=== PATIENT | female | born 1980 | race Caucasian/White ===

== ENCOUNTER 2021-04-11 16:19 | Observation (INO) | payer OTHER ==
[~2021-04-11] VITALS: Ht 175.3 cm; Wt 96.2 kg
[2021-04-11 16:46] LABS: BASOPHILS % 0.4 % (0.0-1.0); EOSINOPHILS # (AUTO) 0.1 (0.0-0.4); HEMATOCRIT 23.7 % (34.2-44.1); LYMPHOCYTES # (AUTO) 1.6 (1.0-3.2); LYMPHOCYTES % 22.7 % (18.0-39.1); MEAN CORPUSCULAR HEMOGLOBIN 17.7 pg (28-32); MEAN CORPUSCULAR HGB CONC 26.6 g/dL (31-35); MEAN CORPUSCULAR VOLUME 66.8 fL (81-99); MONOCYTES # (AUTO) 0.4 (0.2-0.8); NEUTROPHILS # (AUTO) 4.9 (2.1-6.9); NEUTROPHILS % 69.5 % (38.7-80.0); PLATELET COUNT 378 x10e3/uL (140-360); RED BLOOD COUNT 3.55 x10e6/uL (3.6-5.1); RED CELL DISTRIBUTION WIDTH 16.5 % (11.7-14.4)
[2021-04-11 16:52] LABS: HEMOGLOBIN 6.3 g/dL (12.0-16.0)
[2021-04-11 16:59] LABS: ALBUMIN 3.9 g/dL (3.5-5.0); ALBUMIN/GLOBULIN RATIO 1.2 (0.8-2.0); ANION GAP 10.3 mmol/L (8-16); CALCIUM 8.8 mg/dL (8.4-10.2); CREATININE, SERUM 0.85 mg/dL (0.57-1.11); POTASSIUM 3.3 mmol/L (3.5-5.1)
[2021-04-11] MEDS ORDERED: SODIUM CHLORIDE 0.9% 250ML 250 ML IV ONE (17:15)
[2021-04-11] MEDS ORDERED: Morphine 4mg Syringe 4 MG/ML INJ IV ONE (17:45)
[2021-04-11 21:21] VITALS: BP 137/95
[2021-04-11 21:52] VITALS: BP 137/95
[2021-04-12] VITALS (7 sets, daily range): BP systolic 100–122; BP diastolic 59–84
[2021-04-12] MEDS ORDERED: SODIUM CHLORIDE 0.9% 250ML 250 ML ONE (08:23)
[2021-04-12] MEDS: KETOROLAC TROMETHAMINE 30 MG/ML VIAL IV PRN ×2 (09:34→23:28)
[2021-04-12] MEDS ORDERED: MEDROXYPROGESTERONE ACETATE 2.5 MG TAB PO SCH (10:00)
[2021-04-12] MEDS ORDERED: CALCIUM CARBONATE 500 MG CHEWABLE TABS PO PRN (13:00)
[2021-04-12] MEDS ORDERED: PANTOPRAZOLE SOD 40 MG TABEC ONE (13:30)
[2021-04-12] MEDS: PANTOPRAZOLE SOD 40 MG TABEC PO SCH (14:09)
[2021-04-12 18:46] LABS: HEMATOCRIT 28.1 % (34.2-44.1); HEMOGLOBIN 7.8 g/dL (12.0-16.0)
[2021-04-12 19:04] LABS: ANION GAP 13.4 mmol/L (8-16); CALCIUM 8.1 mg/dL (8.4-10.2); CREATININE, SERUM 0.82 mg/dL (0.57-1.11); POTASSIUM 4.4 mmol/L (3.5-5.1)
[2021-04-13 00:13] VITALS: BP 122/85
[2021-04-13 04:23] VITALS: BP 126/69
[2021-04-13 06:28] LABS: BASOPHILS # (AUTO) 0.1 (0.0-0.1); BASOPHILS % 0.7 % (0.0-1.0); EOSINOPHILS # (AUTO) 0.2 (0.0-0.4); EOSINOPHILS % 2.1 % (0.0-6.0); HEMATOCRIT 27.3 % (34.2-44.1); HEMOGLOBIN 7.7 g/dL (12.0-16.0); LYMPHOCYTES % 25.9 % (18.0-39.1); MEAN CORPUSCULAR HEMOGLOBIN 20.1 pg (28-32); MEAN CORPUSCULAR HGB CONC 28.2 g/dL (31-35); MEAN CORPUSCULAR VOLUME 71.1 fL (81-99); MONOCYTES # (AUTO) 0.6 (0.2-0.8); MONOCYTES % 7.5 % (4.4-11.3); NEUTROPHILS # (AUTO) 4.8 (2.1-6.9); NEUTROPHILS % 63.4 % (38.7-80.0); PLATELET COUNT 319 x10e3/uL (140-360); RED BLOOD COUNT 3.84 x10e6/uL (3.6-5.1); RED CELL DISTRIBUTION WIDTH 19.6 % (11.7-14.4)
[2021-04-13 07:21] LABS: THYROID STIMULATING HORMONE 0.827 uIU/mL (0.350-4.940)
[2021-04-13 07:27] VITALS: BP 107/65
[2021-04-13] MEDS: PANTOPRAZOLE SOD 40 MG TABEC PO SCH (10:00)
[2021-04-13 11:37] VITALS: BP 119/82
[2021-04-13 12:27] VITALS: BP 119/82
[2021-04-13] MEDS ORDERED: FEROSUL325 MG PO (13:21)
[2021-04-13 15:00] VITALS: BP 128/84
[2021-04-13 15:14] LABS: HEMATOCRIT 29.9 % (34.2-44.1); HEMOGLOBIN 8.5 g/dL (12.0-16.0)
[2021-04-13 15:36] LABS: ANION GAP 13.2 mmol/L (8-16); CALCIUM 8.5 mg/dL (8.4-10.2); CREATININE, SERUM 0.75 mg/dL (0.57-1.11); POTASSIUM 4.2 mmol/L (3.5-5.1)
[2021-04-14] MEDS ORDERED: MEDROXYPROGESTERONE ACETATE 2.5 MG TAB PO SCH (21:00)
== END 2021-04-13 15:34 | disposition home or self-care (01) ==
LOC: ER 16:35 → ERHOLD 21:06 → MED/SURG 21:15
PROVIDERS: ADMIT Internal Medicine; ATTEND Internal Medicine
DX: N93.9 Abnormal uterine and vaginal bleeding, unspecified (principal); D62 Acute posthemorrhagic anemia; F41.9 Anxiety disorder, unspecified; E66.01 Morbid (severe) obesity due to excess calories; Z68.31 Body mass index [BMI] 31.0-31.9, adult; N92.0 Excessive and frequent menstruation with regular cycle; I10 Essential (primary) hypertension
CPT/HCPCS: 36415 ×3; 76830; 76856; 80048 ×2; 80053; 82607; 82746; 83540; 84443; 84466; 84702; 85014 ×2; 85018 ×2; 85025 ×2; 86850; 86900; 86920; 99284; G0378 ×3; J1885; J2270; J7050 ×2; P9016 ×2; S0164 ×2; U0002

== ENCOUNTER 2022-01-27 12:58 | Emergency (ER) | payer SELFPAY ==
[~2022-01-27] VITALS: Ht 175.3 cm; Wt 96.2 kg
[~2022-01-27 12:58] MED LIST: FEROSUL325 MG PO
[2022-01-27] MEDS ORDERED: KETOROLAC TROMETHAMINE 30 MG/ML VIAL IV STA (14:27)
[2022-01-27] MEDS ORDERED: ONDANSETRON HCL INJ 2MG/ML 2ML 2 MG/ML VIAL IV PRN (14:30)
[2022-01-27] MEDS ORDERED: SODIUM CHLORIDE 0.9% 1000ML 1,000 ML IV ONE (14:30)
[2022-01-27 14:38] LABS: BASOPHILS # (AUTO) 0.1 (0.0-0.1); BASOPHILS % 0.8 % (0.0-1.0); EOSINOPHILS # (AUTO) 0.1 (0.0-0.4); EOSINOPHILS % 1.6 % (0.0-6.0); HEMATOCRIT 33.5 % (34.2-44.1); HEMOGLOBIN 9.3 g/dL (12.0-16.0); LYMPHOCYTES # (AUTO) 1.8 (1.0-3.2); LYMPHOCYTES % 28.1 % (18.0-39.1); MEAN CORPUSCULAR HEMOGLOBIN 19.3 pg (28-32); MEAN CORPUSCULAR HGB CONC 27.8 g/dL (31-35); MEAN CORPUSCULAR VOLUME 69.6 fL (81-99); MONOCYTES # (AUTO) 0.5 (0.2-0.8); MONOCYTES % 7.6 % (4.4-11.3); NEUTROPHILS # (AUTO) 3.9 (2.1-6.9); NEUTROPHILS % 61.7 % (38.7-80.0); PLATELET COUNT 387 x10e3/uL (140-360); RED BLOOD COUNT 4.81 x10e6/uL (3.6-5.1); RED CELL DISTRIBUTION WIDTH 17.5 % (11.7-14.4)
[2022-01-27 14:46] LABS: CLARITY,URINE TURBID (CLEAR); COLOR,URINE STRAW (YELLOW); KETONES,URINE NEGATIVE (NEGATIVE); LEUKOCYTE ESTERASE ,URINE TRACE (NEGATIVE); NITRITE,URINE NEGATIVE (NEGATIVE); PROTEIN,URINE DIPSTICK 2+ (NEGATIVE); URINE UROBILINOGEN 1 mg/dL (0.2 - 1)
[2022-01-27 14:50] LABS: ALBUMIN 3.7 g/dL (3.5-5.0); ALBUMIN/GLOBULIN RATIO 0.9 (0.8-2.0); ANION GAP 9.9 mmol/L (8-16); CALCIUM 8.8 mg/dL (8.4-10.2); CREATININE, SERUM 0.78 mg/dL (0.57-1.11); POTASSIUM 3.9 mmol/L (3.5-5.1)
[2022-01-27 14:52] LABS: LIPASE 16 U/L (8-78)
[2022-01-27 15:05] LABS: AMORPHOUS SEDIMENT,URINE FEW (FEW); BACTERIA,URINE MODERATE /HPF; EPITHELIAL CELLS,URINE MODERATE /LPF
[2022-01-27 15:06] LABS: TRICHOMONAS,URINE FEW
[2022-01-27] MEDS ORDERED: DOXYCYCLINE HYCLATE TABLET 100 MG TAB PO ONE (16:15)
[2022-01-27] MEDS ORDERED: METRONIDAZOLE 500 MG TAB PO ONE (16:15)
[2022-01-27] MEDS ORDERED: IOPAMIDOL 370 MG/ML 100 ML INFUS..BTL INJ ONE (16:59)
[2022-01-27] MEDS ORDERED: ONDANSETRON ODT4 MG PO (18:50)
[2022-01-27] MEDS ORDERED: DOXYCYCLINE HY100 MG PO (18:50)
[2022-01-27] MEDS ORDERED: DICYCLOMINE HCL20 MG PO (18:50)
[2022-01-27 19:13] VITALS: BP 121/84
== END 2022-01-27 19:05 | disposition home or self-care (01) ==
LOC: ER 13:47
DX: R10.31 Right lower quadrant pain (principal); K80.50 Calculus of bile duct without cholangitis or cholecystitis without obstruction; N73.9 Female pelvic inflammatory disease, unspecified; A59.9 Trichomoniasis, unspecified; R93.89 Abnormal findings on diagnostic imaging of other specified body structures
CPT/HCPCS: 36415; 74177; 76856; 76830; 80053; 81001; 83690; 84702; 85025; 99284; J0696; J1885; J2405; J7030; Q9967